=== PATIENT | male | born 1980 | race Caucasian/White ===

== ENCOUNTER → 2016-10-01 | Outpatient (REF) ==
--- NOTE | 2016-10-01 16:26 | REP ---
LUMBAR SPINE, FIVE VIEWS: HISTORY: Degenerative disc disease. There is no acute fracture. The L3-4 through L5-S1 intervertebral discs are decreased in height consistent with disc degeneration. There is narrowing of the L4-5 and L5-S1 facet joints. There are 10 mm of grade 1 spondylolisthesis of L5 on S1. IMPRESSION: Degenerative change as described above. Signed by Austin Torres MD 10/02/2016 08:29 A
--- NOTE | 2016-10-01 20:59 | REP ---
Clinical: Pain and disability. Technique: AP, lateral, swimmers views of the thoracic spine. Findings: Mild chronic scoliosis suggested. Satisfactory alignment and kyphosis is otherwise maintained. There is no evidence for acute fracture / compression injury or subluxation. Mild marginal spurring of the lower thoracic vertebral bodies noted on the frontal projection. Impression: Mild chronic scoliosis and mild marginal spurring. Signed by Hector Dia MD 10/01/2016 08:50 P
--- NOTE | 2016-10-01 21:00 | REP ---
Clinical: Pain and disability. Technique: AP, lateral, open mouth views. Findings: Alignment and lordosis maintained. No acute fracture / compression injury or subluxation. Mild to early moderate focal degenerative disc disease at the C3-4 level with endplate sclerosis and subtle early anterior spurring. Remainder examination is normal for age. Impression: Mild to moderate focal degenerative disc disease at the C3-4 level suspected. Signed by Hector Dia MD 10/01/2016 08:51 P
== END ==
LOC: M SMT 14:44
PROVIDERS: ATTEND Internal Medicine
DX: Z02.71 Encounter for disability determination (principal); M50.31 Other cervical disc degeneration, high cervical region; M51.36 Other intervertebral disc degeneration, lumbar region; M43.16 Spondylolisthesis, lumbar region; M41.24 Other idiopathic scoliosis, thoracic region; M25.78 Osteophyte, vertebrae

== ENCOUNTER 2019-03-10 05:55 | Day surgery (SDC) | payer BC ==
[~2019-03-10] VITALS: Ht 172.7 cm; Wt 80.7 kg
[2019-03-10] MEDS ORDERED: ceFAZolin SOD 1 GM in D5W MINI-BAG PLUS 50 ML IV ONE (06:00)
[2019-03-10] MEDS ORDERED: LIDOCAINE 1% MDV 20ML VIAL SQ PRN (06:00)
[2019-03-10] MEDS ORDERED: LR 1,000 ML IV ONE (06:00)
[2019-03-10] MEDS ORDERED: ZANTTAB PO (06:52)
[2019-03-10] MEDS ORDERED: MIDAZOLAM INJ 2 MG/2 ML VIAL (J2250) As Ordered ONE (06:57)
[2019-03-10] MEDS ORDERED: KETAMINE HCL 200 MG/20 ML VIAL As Ordered ONE (06:57)
[2019-03-10] MEDS ORDERED: fentaNYL 250 MCG/5 ML INJECTION (J3010) As Ordered ONE (06:57)
[2019-03-10] MEDS ORDERED: BUPIVACAINE/EPIN 0.25% 30 ML VIAL As Ordered ONE (06:58)
[2019-03-10] MEDS ORDERED: SUGAMMADEX SODIUM 500 MG/5 ML VIAL (BRIDION) As Ordered ONE (07:04)
[2019-03-10] MEDS ORDERED: PROPOFOL 200 MG/20 ML VIAL As Ordered ONE ×2 (07:04→08:03)
[2019-03-10] MEDS ORDERED: LIDOCAINE 2% INJ 100 MG/5 ML SDV (FOR ANES.) As Ordered ONE ×2 (07:04→08:03)
[2019-03-10] MEDS ORDERED: ROCURONIUM BROMIDE 50 MG/5 ML VIAL As Ordered ONE ×2 (07:04→09:29)
[2019-03-10] MEDS ORDERED: KETOROLAC 60 MG/2 ML VIAL (J1885) As Ordered ONE (07:05)
[2019-03-10] MEDS ORDERED: ONDANSETRON 4MG/2ML VIAL (J2405) As Ordered ONE (07:05)
[2019-03-10] MEDS ORDERED: ACETAMINOPHEN 1000MG 100ML IV BTL (OFIRMEV) (J0131 PER 10MG) As Ordered ONE (07:05)
[2019-03-10] MEDS ORDERED: dexameTHASONE 4 MG/ML 1ML VIAL (J1100) As Ordered ONE (07:05)
[2019-03-10] MEDS ORDERED: METHOCARBAMOL 1,000 MG/10 ML VIAL (J2800) As Ordered ONE ×2 (08:06→10:55)
[2019-03-10] MEDS ORDERED: MEPERIDINE INJ 25 MG/ML VIAL (J2175) IV PRN (10:15)
[2019-03-10] MEDS ORDERED: fentaNYL 100 MCG/2 ML INJECTION (J3010) IV PRN (10:15)
[2019-03-10] MEDS ORDERED: METOCLOPRAMIDE INJ 10MG/2ML VIAL (J2765) IV PRN (10:15)
[2019-03-10] MEDS ORDERED: oxyCODONE 5MG TAB PO PRN (10:15)
[2019-03-10] MEDS ORDERED: ONDANSETRON 4MG/2ML VIAL (J2405) IV PRN ×2 (10:15)
[2019-03-10] MEDS ORDERED: NORCO, ANEXSIA 5/325MG TABLET (HYDROcodone/ACETAMINOPHEN) PO PRN (10:15)
[2019-03-10] MEDS ORDERED: LR 1,000 ML IV SCH ×2 (10:15)
[2019-03-10 11:20] VITALS: BP 117/71
--- NOTE | 2019-03-10 12:31 | RO ---
DATE OF PROCEDURE: 03/10/2019 PREOPERATIVE DIAGNOSIS: Right inguinal hernia. POSTOPERATIVE DIAGNOSIS: 1. Right inguinal hernia (direct). 2. Left inguinal hernia (indirect). PROCEDURE: Robotic-assisted bilateral inguinal hernia repair with mesh. SURGEON: Dr. Jack Jeffrey ASSOCIATE PROFESSOR OF SOCIOLOGY: Merlyn Velazco (provided retraction and instrument exchange, trocar placement and trocar site closure). ESTIMATED BLOOD LOSS: Minimal. FLUIDS: Crystalloid. ANESTHESIA: General endotracheal anesthesia. DISPOSITION: The patient was taken to the recovery room awake, alert, and hemodynamic stable. BRIEF OPERATIVE SUMMARY: The patient was taken operating room and was given general anesthesia. After adequate anesthesia and preoperative antibiotics were given the patient was prepped and draped in the usual sterile fashion. Next a supraumbilical incision was made with skin knife. Blunt dissection was carried down to fascia. Fascia was entered with a Veress needle, insufflated to 15 mm of pressure and a dilating 8 mm trocar was placed, two lateral 8 mm trocars were placed under direct visualization. The patient was placed in Trendelenburg and the robot was docked at this time. It was obvious the patient had a right inguinal hernia that was a direct, however, it was also noted that the patient had a small left indirect inguinal hernia. After mobilizing the peritoneum on the right-hand side with monopolar cut scissors and blunt dissection the hernia was reduced quite nicely taken off the Shashank's medially and the peritoneum was taken off cord structures so that the mesh would fit nicely. Next, the peritoneum on the left-hand side was also taken down quite nicely and the indirect hernia was mobilized. The cord structures were well visualized with the peritoneum off this as well as the Shashank's ligament. Both meshes were cut to the appropriate size, placed in the preperitoneal space then pressed into position in this area and it quite nicely and both sides. The peritoneum was closed with running 3-0 V-Loc. The trocars were removed under direct visualization. 4-0 Vicryl was used close all incisions. Steri-Strips and dry sterile dressing was applied. The patient was awakened, extubated, brought to the recovery room awake, alert, hemodynamically stable. Sponge and needle counts correct times two.
[2019-03-10] MEDS ORDERED: KETOROLAC 30 MG/ML VIAL (J1885) IV SCH (15:30)
== END 2019-03-10 11:50 | disposition home or self-care (01) ==
LOC: M SDC 05:55
PROVIDERS: ATTEND Surgery
DX: K40.20 Bilateral inguinal hernia, without obstruction or gangrene, not specified as recurrent (principal)
CPT/HCPCS: 49650; C1781; J0131; J0690; J1100; J1885; J2250; J2405; J2800; J3010

== ENCOUNTER 2020-08-07 07:26 | Emergency (ER) | payer BC ==
[~2020-08-07] VITALS: Ht 172.7 cm; Wt 86.1 kg
[~2020-08-07 07:26] MED LIST: ZANT150T40 PO
--- NOTE | 2020-08-07 08:28 | REP ---
INDICATION: difficulty swallowing/breathing COMPARISON: None. TECHNIQUE: PA and lateral. FINDINGS: Mediastinum and cardiac silhouette are normal. Subtle increased interstitial markings may reflect a mild multifocal bronchitis/interstitial pneumonitis. No focal consolidation. No effusion. No pneumothorax. Skeletal structures intact. IMPRESSION: Subtle increased interstitial markings may reflect bronchitis versus interstitial pneumonitis. No focal consolidation or effusion. <Electronically signed by Hector Dia > 08/07/20 [id number]
--- NOTE | 2020-08-07 08:32 | REP ---
INDICATION: difficulty swallowing/breathing. COMPARISON: None. TECHNIQUE: AP and lateral soft tissue neck views. (3 total views) FINDINGS: Prevertebral soft tissues are normal. No subcutaneous emphysema or foreign body. Airways patent and normal. Osseous structures are intact. IMPRESSION: Normal soft tissue neck radiographs. <Electronically signed by Hector Dia > 08/07/20 [id number]
[2020-08-07 08:52] LABS: BASO # 0.1 10^3/uL (0.0-0.2); BASO % 0.8 % (0.0-1.0); EOS # 0.2 10^3/uL (0.0-0.5); EOS % 2.8 % (0.0-3.0); HEMATOCRIT 47.2 % (42.0-52.0); HEMOGLOBIN 15.5 g/dl (13.5-17.5); LYMPH # 1.4 10^3/uL (1.5-5.0); LYMPH % 23.5 % (24.0-44.0); MEAN CORPUSCULAR HEMOGLOBIN 26.9 pg (27.0-33.0); MEAN CORPUSCULAR HGB CONC 32.8 g/dl (32.0-36.5); MEAN CORPUSCULAR VOLUME 81.9 fl (80.0-96.0); MONO # 0.5 10^3/uL (0.0-0.8); MONO % 7.7 % (0.0-5.0); NEUTROPHILS # 3.9 10^3/uL (1.5-8.5); NEUTROPHILS % 64.9 % (36.0-66.0); PLATELET COUNT, AUTOMATED 342 10^3/uL (150-450); RED BLOOD COUNT 5.76 10^6/uL (4.30-6.10)
[2020-08-07 09:19] LABS: ALBUMIN 3.9 GM/DL (3.2-5.2); ALT/SGPT 30 U/L (12-78); BILIRUBIN,DIRECT < 0.1 MG/DL (0.0-0.2); BILIRUBIN,TOTAL 0.3 MG/DL (0.2-1.0); LIPASE 227 U/L (73-393); TOTAL PROTEIN 7.6 GM/DL (6.4-8.2)
[2020-08-07] MEDS ORDERED: ISOVUE-370 76% 100ML VIAL As Ordered ONE (09:29)
[2020-08-07] MEDS ORDERED: ONDANSETRON 4MG/2ML VIAL IV ONE (09:45)
[2020-08-07] MEDS ORDERED: PANTOPRAZOLE 40MG VIAL (C9113 PER 1) IV ONE (09:45)
[2020-08-07] MEDS ORDERED: NS 1,000 ML IV ONE (09:45)
[2020-08-07] MEDS ORDERED: MORPHINE 2 MG/ML 1ML VIAL (J2270) IV ONE (09:45)
--- NOTE | 2020-08-07 09:55 | REP ---
INDICATION: upper abdominal pain, heartburn, difficulty swallowing. COMPARISON: 11/06/2018 TECHNIQUE: Axial contrast-enhanced images from the lung bases to the pubic symphysis using 100 cc Isovue 370 intravenous contrast material. Coronal and sagittal reformations obtained. This CT examination was performed using the following dose reduction techniques: Automated exposure control, adjustment of mA and/or kv according to the patient's size, and the use of iterative reconstruction technique. FINDINGS: Lung bases are clear. Visualized heart and pericardium normal. The visualized distal esophagus to the gastroesophageal junction demonstrates mucosal thickening and periesophageal adenopathy with lymph nodes measuring up to 16 mm diameter. These findings are similar to prior examination or require further investigation to exclude acute on chronic esophagitis versus possible malignancy. Liver includes stable 1.5 cm cyst in the medial right lobe., Spleen, pancreas, gallbladder, bilateral adrenal glands and kidneys are normal. The small and large bowel appears normal. No evidence for obstruction or acute inflammatory process. Normal terminal ileum and appendix are identified in the right lower quadrant. Pelvis demonstrates normal bladder and age-appropriate prostate/seminal vesicles. No ascites. No free air. No intraperitoneal or retroperitoneal adenopathy. Abdominal aorta and vasculature appear normal. Musculoskeletal structures are intact and without acute osseous abnormality. IMPRESSION: 1. Mucosal thickening through the visualized distal esophagus with adjacent lymph nodes. Findings are similar to prior examination. Differential diagnosis includes acute/chronic esophagitis as well as possible malignancy. Gastroenterology consultation and endoscopy are suggested. 2. Stable benign hepatic cyst. 3. No further acute abdominopelvic pathology appreciated. <Electronically signed by Hector Dia > 08/07/20 [id number]
[2020-08-07 10:00] LABS: CK-MB VALUE MASS < 1.0 NG/ML (<3.6); CPK CREATINE PHOSPHOKINASE 75 U/L (39-308); MB/CK RELATIVE INDEX 1.33 (< OR =4); TROPONIN I < 0.02 NG/ML (< 0.10)
[2020-08-07] MEDS ORDERED: PROT1TAB2 PO (10:05)
[2020-08-07] MEDS ORDERED: SUCR1TA PO (10:05)
[2020-08-07 10:18] VITALS: BP 127/70
--- NOTE | 2020-08-07 14:35 | ED PDOC ---
Post-Departure Follow-Up dr cooper faxed formal report of ct abd/p for fu Delphine Jose MD Aug 07, 2020 14:35
--- NOTE | 2020-08-07 19:02 | ECGEPIP ---
[facility] - ED Test Date: 2020-08-07 Pat Name: PERLA HENSLEY Department: Room: - Gender: Male Pediatric Ophthalmologist: dax : 1980 Requested By: NATTY Lopez PA-C Order Number: [id number] Reading MD: Delphine Luna Measurements Intervals [place] Rate: 55 P: 14 AL: 187 QRS: 26 QRSD: 81 T: 39 QT: 394 QTc: 378 Interpretive Statements SINUS BRADYCARDIA NONSPECIFIC ST T WAVE CHANGES NO PRIOR ECG FOR COMPARISON Electronically Signed on 08-07-2020 19:02:31 EST by Delphine Luna
== END 2020-08-07 10:30 | disposition home or self-care (01) ==
LOC: M ED 07:26
DX: R10.13 Epigastric pain (principal); K20.90 Esophagitis, unspecified without bleeding; K76.89 Other specified diseases of liver; R00.1 Bradycardia, unspecified
CPT/HCPCS: 36415; 70360; 71046; 74177; 80047; 80076; 82550; 82553; 83690; 84484; 85025; 93005; 96361; 96374; 96375; 99284; C9113; J2270; J2405; Q9967

== ENCOUNTER → 2021-03-30 | Outpatient (CLI) | payer OTHER ==
[~2021-03-30] MED LIST changes: +PROT1TAB2 PO; +SUCR1TA PO
--- NOTE | 2021-04-03 15:28 | SLEEPCENT ---
DATE: 03/30/2021 NOCTURNAL POLYSOMNOGRAPHY ORDERED BY: Leesa Arango MD Diagnostic nocturnal polysomnography was performed for evaluation of sleep physiology. Seven hours and 31 minutes of data were reviewed. There were 386 minutes of sleep identified. Sleep latency was prolonged at 39 minutes. REM latency was normal at 58 minutes. Sleep architecture was fairly well preserved with some fragmentation. There were five REM cycles noted. Overall sleep efficiency was 87.4%. The electrocardiogram showed a sinus rhythm with an average heart rate of 60 beats per minute. EEG showed reasonably normal waveforms for wake and sleep. There were 43 respiratory events identified of 10 seconds in duration or greater for an apnea-hypopnea index of 6.7. The events were primarily obstructive, not exclusive to sleep stage but much more frequent in the supine posture. Arousals from respiratory events occurred only 2.9 times per hour. Significant snoring was noted. There was some mild limb activity. Limb movement arousal index was 5. Oxygen saturations dropped into the upper 80s on a few occasions. IMPRESSIONS: 1. Mild positional obstructive sleep apnea syndrome (G47.33). 2. Apnea-hypopnea index 6.7. RECOMMENDATION: Sleep position re-training for the avoidance of the supine posture is recommended. If the patient's symptoms persist, referral back to [facility] for pressure therapy could be considered.
== END ==
LOC: M SLEEP 20:00
PROVIDERS: ATTEND Physician Assistant Medical
DX: G47.33 Obstructive sleep apnea (adult) (pediatric) (principal)

== ENCOUNTER → 2022-01-12 | Outpatient (REF) | payer BC, OTHER | LOC: M SMT 12:59 | PROVIDERS: ATTEND Urology | DX: Z30.2 Encounter for sterilization (principal) ==

== ENCOUNTER → 2022-05-17 | Outpatient (REF) | payer BC, OTHER ==
[2022-05-17 12:22] LABS: SEMEN APPEARANCE OPAQUE (OPAQUE); SEMEN VISCOSITY LIQUID (LIQUID); SEMEN VOLUME 8.5 ml (2.0-5.0); WBC CONCENTRATION >1 M/ml (<=1 M/ml)
== END ==
LOC: M SMT 12:14
PROVIDERS: ATTEND Urology
DX: Z30.8 Encounter for other contraceptive management (principal)

== ENCOUNTER → 2023-07-16 | Outpatient (CLI) | payer OTHER | LOC: M RAD 08:49 | DX: Q44.6 Cystic disease of liver (principal) ==

== ENCOUNTER → 2024-06-16 | Outpatient (REF) | payer OTHER ==
[2024-06-16 15:38] LABS: APPEARANCE, URINE CLEAR (CLEAR); BACTERIA, URINE AUTO NEGATIVE (NEGATIVE); BILIRUBIN, URINE AUTO NEGATIVE (NEGATIVE); BLOOD, URINE BLOOD NEGATIVE (NEGATIVE); COLOR, URINE YELLOW (YELLOW); GLUCOSE, URINE (UA) AUTO NEGATIVE (NEGATIVE); KETONE, URINE AUTO NEGATIVE (NEGATIVE); LEUKOCYTE ESTERASE, URINE AUTO NEGATIVE (NEGATIVE); NITRITE, URINE AUTO NEGATIVE (NEGATIVE); PROTEIN, URINE AUTO NEGATIVE (NEGATIVE); RBC, URINE AUTO 2 /HPF (0-3); SPECIFIC GRAVITY URINE AUTO 1.021 (1.002-1.035); SQUAMOUS EPITHELIAL CELL UR AU 0 /HPF (0-6); UROBILINOGEN, URINE AUTO 0.2 mg/dL (0.0-2.0); WBC, URINE AUTO 0 /HPF (0-3)
== END ==
LOC: M SMT 14:52
PROVIDERS: ATTEND Physician Assistant
DX: Z87.448 Personal history of other diseases of urinary system (principal)